=== PATIENT | female | born 1970 | race Caucasian/White ===

== ENCOUNTER 2016-10-24 05:17 | Emergency (ER) | payer SELFPAY ==
[~2016-10-24] VITALS: Ht 170.2 cm; Wt 81.8 kg
[~2016-10-24 05:17] MED LIST: ACIPHEX20 MG PO; AMBIEN 10MG10 MG PO; AMBIEN 5MG TABLE5 MG PO; AMBIEN5 MG PO; ANUSOL HC CREAM30 GM TP; ATIVAN 1MG T1 MG/TAB PO; AZITHROMYCIN; AZITHROMYCIN250 MG PO; CELEXA 20MG20 MG/TAB PO; CEPHALEXIN500 M1 PO; CHEMO; CITALOPRAM HYDR20 MG PO; CLINDAMYCIN150 MG PO; FLEXERIL 1010 MG/TAB PO; IBU800 M1 PO; MACROBID 1100 MG/CAP PO; MEPERIDINE HCL50 MG PO; MOTRIN 600600 MG/TAB PO; MOTRIN 800800 MG/TAB PO; MVI; NEXIUM40 MG PO; NO HOME MEDICATIONS; NORCO 325 MG-51 TAB PO; NORCO 325 MG-7.1 TAB PO; PEPCID 20MG TAB20 MG PO; PERCOCET 325 MG1 TA2 PO; PHENERGAN 25 TA25 MG PO; PHENERGAN W/CO120 ML PO; PHENERGAN25 MG RC; SEPTRA DS 8001 TAB PO; SEROQUEL 1100 MG/TAB PO; SEROQUEL100 MG PO; TETRACYCLINE 250MG PO; VICODIN 5/5001 UDTAB PO; VITAMIN C500 MG PO; VITAMIN E-400200 IU PO; XANAX0.5 MG PO; ZITHROMAX Z PA250 MG PO; ZITHROMAX1 GM/PACKE PO; ZOFRAN 4MG T4 MG/TAB PO; ZOFRAN ODT4 MG PO; ZOFRAN ODT8 MG PO
[2016-10-24 05:18] VITALS: TEMP 98.6
[2016-10-24 05:57] LABS: BASO # 0.1 (0.0-0.2); BASO % 1.4 % (0.0-2.0); EOS % 0.5 % (0-4.0); GRAN # 1.6 (1.4-6.5); GRAN % 37.2 % (42.2-75.2); HEMATOCRIT 42.7 % (37.0-47.0); HEMOGLOBIN 14.3 g/dl (12.5-16.0); LYMPH # 2.3 (1.2-3.4); LYMPH % 52.2 % (20.0-51.0); MEAN CELL VOLUME 88 fl (80.0-100.0); MEAN CORPUSCULAR HEMOGLOBIN 29 pg (27.0-31.0); MEAN CORPUSCULAR HGB CONC 34 g/dl (33.0-37.0); MEAN PLATELET VOLUME 9.2 fl (7.4-10.4); MONO # 0.4 (0.1-0.6); MONO % 8.7 % (1.7-9.3); PLATELET COUNT 101 K/mm3 (130-400); RED BLOOD COUNT 4.86 M/mm3 (4.10-5.30); REDCELL DISTRIBUTION WIDTH-CV 14.6 % (11.5-14.5); WHITE BLOOD COUNT 4.4 K/mm3 (4.8-10.8)
[2016-10-24 06:07] LABS: ADJUSTED CALCIUM 8.7 mg/dL (8.4-10.2); ALANINE AMINOTRANSFERASE 42 U/L (9-52); ALBUMIN 4.1 gm/dL (3.5-5.0); ALKALINE PHOSPHATASE 85 U/L (50-136); ANION GAP 16 mmol/L (7-16); BILIRUBIN,TOTAL 0.8 mg/dL (0.0-1.0); BLOOD UREA NITROGEN 9 mg/dL (7-17); CALCIUM 8.8 mg/dL (8.4-10.2); CARBON DIOXIDE 22 mmol/L (22-30); CHLORIDE 105 mmol/L (98-107); CREATININE, serum 0.92 mg/dL (0.52-1.25); GLUCOSE 84 mg/dL (74-106); POTASSIUM 3.9 mmol/L (3.4-5.0); SODIUM 143 mmol/L (137-145); TOTAL PROTEIN 7.3 gm/dL (6.4-8.2)
[2016-10-24 06:08] LABS: ACETAMINOPHEN < 10 ug/mL (10-30); SALICYLATE < 1.0 mg/dL
[2016-10-24 15:38] LABS: AMPHETAMINE URINE NEGATIVE; BARBITURATES URINE NEGATIVE; BENZODIAZEPINES URINE NEGATIVE; BUPRENORPHINE URINE NEGATIVE; METHADONE URINE NEGATIVE; OPIATES URINE NEGATIVE; OXYCODONE URINE NEGATIVE; PHENCYCLIDINE URINE NEGATIVE; PROPOXYPHENE URINE NEGATIVE; THC CANNABINOIDS URINE NEGATIVE
[2016-10-24] MEDS ORDERED: VALIUM 2MG T2 MG/TAB PO (19:13)
[2016-10-24 20:15] VITALS: BP 149/101; PULSE 102
== END 2016-10-24 20:39 | disposition home or self-care (01) ==
LOC: COL.ER 05:17
PROVIDERS: Emergency Medicine
DX: T45.0X2A Poisoning by antiallergic and antiemetic drugs, intentional self-harm, initial encounter (principal); F32.9 Major depressive disorder, single episode, unspecified; F43.10 Post-traumatic stress disorder, unspecified; F10.230 Alcohol dependence with withdrawal, uncomplicated; F10.220 Alcohol dependence with intoxication, uncomplicated; T51.0X2A Toxic effect of ethanol, intentional self-harm, initial encounter; Y90.8 Blood alcohol level of 240 mg/100 ml or more; R45.851 Suicidal ideations
CPT/HCPCS: J2060; J2405; J2765; J3360; J7030

== ENCOUNTER 2016-10-27 10:52 | Emergency (ER) | payer SELFPAY ==
[~2016-10-27] VITALS: Ht 170.2 cm; Wt 76.4 kg
[~2016-10-27 10:52] MED LIST changes: +VALIUM 2MG T2 MG/TAB PO
[2016-10-27 10:53] VITALS: BP 125/92; PULSE 135; TEMP 98.2
== END 2016-10-27 11:50 | disposition left against medical advice (07) ==
LOC: COL.ER 10:52
DX: R45.851 Suicidal ideations (principal)

== ENCOUNTER 2016-10-27 12:16 | Emergency (ER) | payer SELFPAY ==
[~2016-10-27] VITALS: Ht 170.2 cm; Wt 76.4 kg
[2016-10-27 13:37] LABS: BASO % 0.7 % (0.0-2.0); EOS # 0.1 (0.0-0.7); EOS % 2.5 % (0-4.0); GRAN # 2.3 (1.4-6.5); GRAN % 51.4 % (42.2-75.2); HEMATOCRIT 44.1 % (37.0-47.0); HEMOGLOBIN 14.3 g/dl (12.5-16.0); LYMPH # 1.6 (1.2-3.4); LYMPH % 36.6 % (20.0-51.0); MEAN CELL VOLUME 91 fl (80.0-100.0); MEAN CORPUSCULAR HEMOGLOBIN 29 pg (27.0-31.0); MEAN CORPUSCULAR HGB CONC 32 g/dl (33.0-37.0); MEAN PLATELET VOLUME 11.2 fl (7.4-10.4); MONO # 0.4 (0.1-0.6); MONO % 8.6 % (1.7-9.3); PLATELET COUNT 80 K/mm3 (130-400); RED BLOOD COUNT 4.87 M/mm3 (4.10-5.30); REDCELL DISTRIBUTION WIDTH-CV 14.4 % (11.5-14.5); WHITE BLOOD COUNT 4.4 K/mm3 (4.8-10.8)
[2016-10-27 13:47] LABS: ANION GAP 15 mmol/L (7-16); BLOOD UREA NITROGEN 8 mg/dL (7-17); CALCIUM 9.3 mg/dL (8.4-10.2); CARBON DIOXIDE 22 mmol/L (22-30); CHLORIDE 106 mmol/L (98-107); CREATININE, serum 0.97 mg/dL (0.52-1.25); GLUCOSE 81 mg/dL (74-106); POTASSIUM 3.7 mmol/L (3.4-5.0); SODIUM 143 mmol/L (137-145)
[2016-10-27 13:48] LABS: ACETAMINOPHEN < 10 ug/mL (10-30); SALICYLATE < 1.0 mg/dL
[2016-10-27 20:32] LABS: AMPHETAMINE URINE NEGATIVE; BARBITURATES URINE NEGATIVE; BENZODIAZEPINES URINE NEGATIVE; BUPRENORPHINE URINE NEGATIVE; METHADONE URINE NEGATIVE; OPIATES URINE NEGATIVE; OXYCODONE URINE NEGATIVE; PHENCYCLIDINE URINE NEGATIVE; PROPOXYPHENE URINE NEGATIVE; THC CANNABINOIDS URINE NEGATIVE
[2016-10-28 16:47] VITALS: BP 119/98; PULSE 66; TEMP 98.6
== END 2016-10-28 16:52 ==
LOC: COL.ER 12:16
PROVIDERS: Nurse Practitioner
DX: F32.9 Major depressive disorder, single episode, unspecified (principal); R45.851 Suicidal ideations; F10.129 Alcohol abuse with intoxication, unspecified; Y90.6 Blood alcohol level of 120-199 mg/100 ml
CPT/HCPCS: J2270

== ENCOUNTER 2017-02-01 21:29 | Emergency (ER) | payer SELFPAY ==
[~2017-02-01] VITALS: Ht 170.2 cm; Wt 96.4 kg
[2017-02-01 21:32] VITALS: TEMP 98.2
[2017-02-01] MEDS ORDERED: KLONOPIN2 MG PO (21:37)
[2017-02-01] MEDS ORDERED: ZOLOFT 100MG100 MG PO (21:38)
[2017-02-01 22:27] LABS: AMPHETAMINE URINE NEGATIVE; BARBITURATES URINE NEGATIVE; BENZODIAZEPINES URINE NEGATIVE; BUPRENORPHINE URINE NEGATIVE; METHADONE URINE NEGATIVE; OPIATES URINE NEGATIVE; OXYCODONE URINE NEGATIVE; PHENCYCLIDINE URINE NEGATIVE; PROPOXYPHENE URINE NEGATIVE; THC CANNABINOIDS URINE NEGATIVE
[2017-02-01 22:58] LABS: BASO % 0.7 % (0.0-2.0); EOS % 0.4 % (0-4.0); GRAN # 2.9 (1.4-6.5); GRAN % 64.1 % (42.2-75.2); HEMATOCRIT 44.7 % (37.0-47.0); HEMOGLOBIN 14.9 g/dl (12.5-16.0); LYMPH # 1.3 (1.2-3.4); LYMPH % 28.8 % (20.0-51.0); MEAN CELL VOLUME 85 fl (80.0-100.0); MEAN CORPUSCULAR HEMOGLOBIN 28 pg (27.0-31.0); MEAN CORPUSCULAR HGB CONC 33 g/dl (33.0-37.0); MEAN PLATELET VOLUME 9.8 fl (7.4-10.4); MONO # 0.3 (0.1-0.6); MONO % 5.8 % (1.7-9.3); PLATELET COUNT 144 K/mm3 (130-400); RED BLOOD COUNT 5.24 M/mm3 (4.10-5.30); REDCELL DISTRIBUTION WIDTH-CV 15.5 % (11.5-14.5); WHITE BLOOD COUNT 4.5 K/mm3 (4.8-10.8)
[2017-02-01 23:06] LABS: ADJUSTED CALCIUM 8.4 mg/dL (8.4-10.2); ALANINE AMINOTRANSFERASE 22 U/L (9-52); ALBUMIN 4.6 gm/dL (3.5-5.0); ALKALINE PHOSPHATASE 105 U/L (50-136); ANION GAP 18 mmol/L (7-16); BILIRUBIN,TOTAL 0.8 mg/dL (0.0-1.0); BLOOD UREA NITROGEN 14 mg/dL (7-17); CALCIUM 8.9 mg/dL (8.4-10.2); CARBON DIOXIDE 24 mmol/L (22-30); CHLORIDE 109 mmol/L (98-107); CREATININE, serum 0.83 mg/dL (0.52-1.25); GLUCOSE 89 mg/dL (74-106); POTASSIUM 3.9 mmol/L (3.4-5.0); SODIUM 151 mmol/L (137-145); TOTAL PROTEIN 8.1 gm/dL (6.4-8.2)
[2017-02-01 23:08] LABS: ACETAMINOPHEN < 10 ug/mL (10-30); SALICYLATE < 1.0 mg/dL
[2017-02-02 12:58] VITALS: BP 144/95; PULSE 78
== END 2017-02-02 13:05 | disposition home or self-care (01) ==
LOC: COL.ER 21:29
PROVIDERS: Emergency Medicine
DX: T42.4X2A Poisoning by benzodiazepines, intentional self-harm, initial encounter (principal); R45.851 Suicidal ideations; Y92.009 Unspecified place in unspecified non-institutional (private) residence as the place of occurrence of the external cause; R11.2 Nausea with vomiting, unspecified; F10.120 Alcohol abuse with intoxication, uncomplicated; Y90.6 Blood alcohol level of 120-199 mg/100 ml; F32.9 Major depressive disorder, single episode, unspecified

== ENCOUNTER 2017-02-06 17:28 | Emergency (ER) | payer SELFPAY ==
[~2017-02-06] VITALS: Ht 170.2 cm; Wt 90.9 kg
[~2017-02-06 17:28] MED LIST changes: +KLONOPIN2 MG PO; +ZOLOFT 100MG100 MG PO
[2017-02-06 17:29] VITALS: TEMP 98.4
[2017-02-06] MEDS ORDERED: AMBIEN 10MG10 MG PO (17:42)
[2017-02-06] MEDS ORDERED: KLONOPIN 0.5MG0.5 MG PO (17:43)
[2017-02-06 18:20] LABS: BASO % 0.5 % (0.0-2.0); EOS # 0.1 (0.0-0.7); EOS % 0.8 % (0-4.0); GRAN # 3.7 (1.4-6.5); GRAN % 62.4 % (42.2-75.2); HEMATOCRIT 39.3 % (37.0-47.0); HEMOGLOBIN 12.8 g/dl (12.5-16.0); LYMPH # 1.8 (1.2-3.4); LYMPH % 30.7 % (20.0-51.0); MEAN CELL VOLUME 88 fl (80.0-100.0); MEAN CORPUSCULAR HEMOGLOBIN 29 pg (27.0-31.0); MEAN CORPUSCULAR HGB CONC 33 g/dl (33.0-37.0); MEAN PLATELET VOLUME 9.8 fl (7.4-10.4); MONO # 0.3 (0.1-0.6); MONO % 5.4 % (1.7-9.3); PLATELET COUNT 163 K/mm3 (130-400); RED BLOOD COUNT 4.47 M/mm3 (4.10-5.30); REDCELL DISTRIBUTION WIDTH-CV 15.7 % (11.5-14.5)
[2017-02-06 18:21] LABS: AMPHETAMINE URINE NEGATIVE; BARBITURATES URINE NEGATIVE; BENZODIAZEPINES URINE NEGATIVE; METHADONE URINE NEGATIVE; OPIATES URINE NEGATIVE; OXYCODONE URINE NEGATIVE; PHENCYCLIDINE URINE NEGATIVE; PROPOXYPHENE URINE NEGATIVE; THC CANNABINOIDS URINE NEGATIVE
[2017-02-06 18:30] LABS: ANION GAP 15 mmol/L (7-16); BLOOD UREA NITROGEN 10 mg/dL (7-17); CALCIUM 8.5 mg/dL (8.4-10.2); CARBON DIOXIDE 24 mmol/L (22-30); CHLORIDE 110 mmol/L (98-107); CREATININE, serum 0.84 mg/dL (0.52-1.25); GLUCOSE 84 mg/dL (74-106); POTASSIUM 3.7 mmol/L (3.4-5.0); SODIUM 149 mmol/L (137-145)
[2017-02-06 18:32] LABS: ACETAMINOPHEN < 10 ug/mL (10-30); SALICYLATE < 1.0 mg/dL
[2017-02-07 06:23] VITALS: BP 136/91
[2017-02-07 11:37] VITALS: PULSE 93
== END 2017-02-07 11:37 | disposition home or self-care (01) ==
LOC: COL.ER 17:28
PROVIDERS: Physician Assistant
DX: F10.120 Alcohol abuse with intoxication, uncomplicated (principal); F43.10 Post-traumatic stress disorder, unspecified; F32.9 Major depressive disorder, single episode, unspecified; Y90.8 Blood alcohol level of 240 mg/100 ml or more; R45.851 Suicidal ideations
CPT/HCPCS: J2765

== ENCOUNTER 2017-02-15 13:13 | Emergency (ER) | payer SELFPAY ==
[~2017-02-15] VITALS: Ht 170.2 cm; Wt 75.5 kg
[~2017-02-15 13:13] MED LIST changes: +KLONOPIN 0.5MG0.5 MG PO
[2017-02-15 13:15] VITALS: TEMP 98.4
[2017-02-15 14:20] LABS: BASO # 0.1 (0.0-0.2); BASO % 1.2 % (0.0-2.0); EOS # 0.1 (0.0-0.7); EOS % 0.8 % (0-4.0); GRAN # 3.3 (1.4-6.5); GRAN % 54.6 % (42.2-75.2); HEMATOCRIT 41.3 % (37.0-47.0); HEMOGLOBIN 13.5 g/dl (12.5-16.0); LYMPH # 2.3 (1.2-3.4); LYMPH % 38.2 % (20.0-51.0); MEAN CELL VOLUME 87 fl (80.0-100.0); MEAN CORPUSCULAR HEMOGLOBIN 29 pg (27.0-31.0); MEAN CORPUSCULAR HGB CONC 33 g/dl (33.0-37.0); MONO # 0.3 (0.1-0.6); MONO % 4.9 % (1.7-9.3); PLATELET COUNT 300 K/mm3 (130-400); RED BLOOD COUNT 4.74 M/mm3 (4.10-5.30); REDCELL DISTRIBUTION WIDTH-CV 16.1 % (11.5-14.5); WHITE BLOOD COUNT 6.1 K/mm3 (4.8-10.8)
[2017-02-15 14:39] LABS: ADJUSTED CALCIUM 8.6 mg/dL (8.4-10.2); ALANINE AMINOTRANSFERASE 24 U/L (9-52); ALBUMIN 4.4 gm/dL (3.5-5.0); ALKALINE PHOSPHATASE 82 U/L (50-136); ANION GAP 18 mmol/L (7-16); BILIRUBIN,TOTAL 0.6 mg/dL (0.0-1.0); BLOOD UREA NITROGEN 13 mg/dL (7-17); CALCIUM 8.9 mg/dL (8.4-10.2); CARBON DIOXIDE 24 mmol/L (22-30); CHLORIDE 100 mmol/L (98-107); CREATININE, serum 0.89 mg/dL (0.52-1.25); GLUCOSE 85 mg/dL (74-106); POTASSIUM 3.7 mmol/L (3.4-5.0); SODIUM 142 mmol/L (137-145); TOTAL PROTEIN 7.5 gm/dL (6.4-8.2)
[2017-02-15 14:40] LABS: ACETAMINOPHEN < 10 ug/mL (10-30); SALICYLATE < 1.0 mg/dL
[2017-02-15 14:43] LABS: AMPHETAMINE URINE NEGATIVE; BARBITURATES URINE NEGATIVE; BENZODIAZEPINES URINE NEGATIVE; BUPRENORPHINE URINE NEGATIVE; METHADONE URINE NEGATIVE; OPIATES URINE NEGATIVE; OXYCODONE URINE NEGATIVE; PHENCYCLIDINE URINE NEGATIVE; PROPOXYPHENE URINE NEGATIVE
[2017-02-15 14:44] LABS: THC CANNABINOIDS URINE NEGATIVE
[2017-02-15 18:10] VITALS: BP 117/83
[2017-02-15 23:09] VITALS: PULSE 95
== END 2017-02-15 23:09 | disposition home or self-care (01) ==
LOC: COL.ER 13:13
PROVIDERS: Nurse Practitioner
DX: F10.120 Alcohol abuse with intoxication, uncomplicated (principal); Y90.8 Blood alcohol level of 240 mg/100 ml or more; F32.2 Major depressive disorder, single episode, severe without psychotic features; F41.9 Anxiety disorder, unspecified; R51 Headache; R45.851 Suicidal ideations; R56.9 Unspecified convulsions

== ENCOUNTER 2017-03-19 03:35 | Observation (INO) | payer SELFPAY ==
[~2017-03-19] VITALS: Ht 170.2 cm; Wt 76.6 kg
[2017-03-19] VITALS (371 sets, daily range): BP systolic 106–138; BP diastolic 79–101; PULSE 73–94; TEMP 97.3; O2SAT 88–100
[2017-03-19 04:10] LABS: BASO % 0.7 % (0.0-2.0); EOS # 0.1 (0.0-0.7); EOS % 2.5 % (0-4.0); GRAN # 2.4 (1.4-6.5); GRAN % 42.5 % (42.2-75.2); HEMATOCRIT 41.8 % (37.0-47.0); HEMOGLOBIN 13.6 g/dl (12.5-16.0); LYMPH # 2.4 (1.2-3.4); LYMPH % 43.3 % (20.0-51.0); MEAN CELL VOLUME 88 fl (80.0-100.0); MEAN CORPUSCULAR HEMOGLOBIN 29 pg (27.0-31.0); MEAN CORPUSCULAR HGB CONC 33 g/dl (33.0-37.0); MEAN PLATELET VOLUME 10.9 fl (7.4-10.4); MONO # 0.6 (0.1-0.6); MONO % 10.8 % (1.7-9.3); PLATELET COUNT 119 K/mm3 (130-400); RED BLOOD COUNT 4.73 M/mm3 (4.10-5.30); REDCELL DISTRIBUTION WIDTH-CV 14.6 % (11.5-14.5); WHITE BLOOD COUNT 5.6 K/mm3 (4.8-10.8)
[2017-03-19 04:21] LABS: AMPHETAMINE URINE NEGATIVE; BARBITURATES URINE NEGATIVE; BENZODIAZEPINES URINE NEGATIVE; BUPRENORPHINE URINE NEGATIVE; METHADONE URINE NEGATIVE; OPIATES URINE NEGATIVE; OXYCODONE URINE NEGATIVE; PHENCYCLIDINE URINE NEGATIVE; PROPOXYPHENE URINE NEGATIVE; THC CANNABINOIDS URINE NEGATIVE
[2017-03-19 04:24] LABS: ADJUSTED CALCIUM 8.5 mg/dL (8.4-10.2); ALANINE AMINOTRANSFERASE 49 U/L (9-52); ALBUMIN 4.1 gm/dL (3.5-5.0); ALKALINE PHOSPHATASE 83 U/L (50-136); ANION GAP 15 mmol/L (7-16); BILIRUBIN,TOTAL 0.6 mg/dL (0.0-1.0); BLOOD UREA NITROGEN 7 mg/dL (7-17); CALCIUM 8.6 mg/dL (8.4-10.2); CARBON DIOXIDE 20 mmol/L (22-30); CHLORIDE 102 mmol/L (98-107); CREATININE, serum 0.84 mg/dL (0.52-1.25); GLUCOSE 92 mg/dL (74-106); POTASSIUM 3.5 mmol/L (3.4-5.0); SODIUM 137 mmol/L (137-145); TOTAL PROTEIN 7.1 gm/dL (6.4-8.2)
[2017-03-19 04:25] LABS: ACETAMINOPHEN < 10 ug/mL (10-30); SALICYLATE < 1.0 mg/dL
[2017-03-19 05:50] LABS: MAGNESIUM 1.7 mg/dL (1.6-2.3)
[2017-03-19 11:50] LABS: PARTIAL THROMBOPLASTIN TIME 27.2 SECONDS (26.0-37.0)
[2017-03-19 13:06] LABS: PH 6 (5-8); SQUAMOUS EPITHELIAL None Seen /hpf; URINE APPEARANCE Clear; URINE BACTERIA Rare /hpf; URINE BILIRUBIN Negative (NEGATIVE); URINE BLOOD Negative (NEGATIVE); URINE COLOR Yellow; URINE GLUCOSE Negative (NEGATIVE); URINE KETONE Negative (NEGATIVE); URINE RBC None Seen /hpf; URINE UROBILINOGEN Negative (NEGATIVE); URINE WBC 0-2 /hpf
== END 2017-03-19 14:45 | disposition other institution (70) ==
LOC: COL.ER 03:35 → ICU 04:42
PROVIDERS: Emergency Medicine; Nurse Practitioner Family
DX: T54.92XA Toxic effect of unspecified corrosive substance, intentional self-harm, initial encounter (principal); R11.2 Nausea with vomiting, unspecified; F10.229 Alcohol dependence with intoxication, unspecified; F32.9 Major depressive disorder, single episode, unspecified; G43.909 Migraine, unspecified, not intractable, without status migrainosus; K21.9 Gastro-esophageal reflux disease without esophagitis; Z90.3 Acquired absence of stomach [part of]; Z90.710 Acquired absence of both cervix and uterus; Z90.721 Acquired absence of ovaries, unilateral; Z90.49 Acquired absence of other specified parts of digestive tract; Y90.8 Blood alcohol level of 240 mg/100 ml or more; Z85.41 Personal history of malignant neoplasm of cervix uteri; Z92.21 Personal history of antineoplastic chemotherapy; Z85.028 Personal history of other malignant neoplasm of stomach; Z82.49 Family history of ischemic heart disease and other diseases of the circulatory system
CPT/HCPCS: C9113; G0378; J1170; J2060; J2405; J3411; J7030

== ENCOUNTER 2017-03-25 00:30 | Emergency (ER) | payer SELFPAY ==
[~2017-03-25] VITALS: Ht 170.2 cm; Wt 86.4 kg
[2017-03-25 00:34] VITALS: TEMP 97.9
[2017-03-25 01:09] LABS: BASO # 0.1 (0.0-0.2); EOS # 0.1 (0.0-0.7); EOS % 2.6 % (0-4.0); GRAN # 1.4 (1.4-6.5); GRAN % 28.9 % (42.2-75.2); HEMATOCRIT 40.7 % (37.0-47.0); HEMOGLOBIN 13.3 g/dl (12.5-16.0); LYMPH # 2.9 (1.2-3.4); MEAN CELL VOLUME 87 fl (80.0-100.0); MEAN CORPUSCULAR HEMOGLOBIN 28 pg (27.0-31.0); MEAN CORPUSCULAR HGB CONC 33 g/dl (33.0-37.0); MEAN PLATELET VOLUME 9.1 fl (7.4-10.4); MONO # 0.5 (0.1-0.6); MONO % 9.3 % (1.7-9.3); PLATELET COUNT 161 K/mm3 (130-400); RED BLOOD COUNT 4.68 M/mm3 (4.10-5.30); REDCELL DISTRIBUTION WIDTH-CV 15.1 % (11.5-14.5); WHITE BLOOD COUNT 4.9 K/mm3 (4.8-10.8)
[2017-03-25 01:24] LABS: ADJUSTED CALCIUM 8.1 mg/dL (8.4-10.2); ALANINE AMINOTRANSFERASE 48 U/L (9-52); ALBUMIN 4.1 gm/dL (3.5-5.0); ALKALINE PHOSPHATASE 81 U/L (50-136); ANION GAP 15 mmol/L (7-16); BILIRUBIN,TOTAL 0.6 mg/dL (0.0-1.0); BLOOD UREA NITROGEN 5 mg/dL (7-17); CALCIUM 8.2 mg/dL (8.4-10.2); CARBON DIOXIDE 22 mmol/L (22-30); CHLORIDE 110 mmol/L (98-107); CREATININE, serum 0.84 mg/dL (0.52-1.25); GLUCOSE 94 mg/dL (74-106); POTASSIUM 3.5 mmol/L (3.4-5.0); SODIUM 147 mmol/L (137-145); TOTAL PROTEIN 7.1 gm/dL (6.4-8.2)
[2017-03-25 01:29] LABS: ACETAMINOPHEN < 10 ug/mL (10-30); SALICYLATE < 1.0 mg/dL
[2017-03-25 02:38] LABS: PH 7 (5-8); SQUAMOUS EPITHELIAL 0-2 /hpf; URINE APPEARANCE Clear; URINE BACTERIA None Seen /hpf; URINE BILIRUBIN Negative (NEGATIVE); URINE BLOOD Negative (NEGATIVE); URINE COLOR Straw; URINE GLUCOSE Negative (NEGATIVE); URINE KETONE Negative (NEGATIVE); URINE RBC 0-2 /hpf; URINE UROBILINOGEN Negative (NEGATIVE); URINE WBC 0-2 /hpf
[2017-03-25 02:57] LABS: AMPHETAMINE URINE NEGATIVE; BARBITURATES URINE NEGATIVE; BENZODIAZEPINES URINE NEGATIVE; BUPRENORPHINE URINE NEGATIVE; METHADONE URINE NEGATIVE; OPIATES URINE NEGATIVE; OXYCODONE URINE NEGATIVE; PHENCYCLIDINE URINE NEGATIVE; PROPOXYPHENE URINE NEGATIVE; THC CANNABINOIDS URINE NEGATIVE
[2017-03-25 19:19] VITALS: BP 173/109; PULSE 85
== END 2017-03-25 19:19 | disposition home or self-care (01) ==
LOC: COL.ER 00:30
PROVIDERS: Nurse Practitioner
DX: F32.9 Major depressive disorder, single episode, unspecified (principal); R45.851 Suicidal ideations; F10.120 Alcohol abuse with intoxication, uncomplicated; Y90.8 Blood alcohol level of 240 mg/100 ml or more; F60.3 Borderline personality disorder; G40.909 Epilepsy, unspecified, not intractable, without status epilepticus; Z85.41 Personal history of malignant neoplasm of cervix uteri
CPT/HCPCS: J2550; J3411; J3475; J7030

== ENCOUNTER 2017-04-02 15:40 | Emergency (ER) | payer SELFPAY ==
[2017-04-02 16:50] LABS: BASO # 0.1 (0.0-0.2); BASO % 1.6 % (0.0-2.0); EOS # 0.1 (0.0-0.7); EOS % 1.8 % (0-4.0); GRAN # 2.3 (1.4-6.5); GRAN % 53.3 % (42.2-75.2); HEMATOCRIT 41.5 % (37.0-47.0); HEMOGLOBIN 13.8 g/dl (12.5-16.0); LYMPH # 1.6 (1.2-3.4); LYMPH % 35.8 % (20.0-51.0); MEAN CELL VOLUME 87 fl (80.0-100.0); MEAN CORPUSCULAR HEMOGLOBIN 29 pg (27.0-31.0); MEAN CORPUSCULAR HGB CONC 33 g/dl (33.0-37.0); MEAN PLATELET VOLUME 8.9 fl (7.4-10.4); MONO # 0.3 (0.1-0.6); MONO % 7.3 % (1.7-9.3); PLATELET COUNT 226 K/mm3 (130-400); REDCELL DISTRIBUTION WIDTH-CV 14.4 % (11.5-14.5); WHITE BLOOD COUNT 4.4 K/mm3 (4.8-10.8)
[2017-04-02 17:07] LABS: ADJUSTED CALCIUM 8.4 mg/dL (8.4-10.2); ALANINE AMINOTRANSFERASE 26 U/L (9-52); ALBUMIN 4.1 gm/dL (3.5-5.0); ALKALINE PHOSPHATASE 81 U/L (50-136); ANION GAP 17 mmol/L (7-16); BILIRUBIN,TOTAL 0.7 mg/dL (0.0-1.0); BLOOD UREA NITROGEN 7 mg/dL (7-17); CALCIUM 8.5 mg/dL (8.4-10.2); CARBON DIOXIDE 22 mmol/L (22-30); CHLORIDE 108 mmol/L (98-107); CREATININE, serum 0.86 mg/dL (0.52-1.25); GLUCOSE 94 mg/dL (74-106); POTASSIUM 3.6 mmol/L (3.4-5.0); SODIUM 146 mmol/L (137-145); TOTAL PROTEIN 7.2 gm/dL (6.4-8.2)
[2017-04-02 17:08] LABS: ACETAMINOPHEN < 10 ug/mL (10-30); SALICYLATE < 1.0 mg/dL
[2017-04-02 18:38] LABS: AMPHETAMINE URINE NEGATIVE; BARBITURATES URINE NEGATIVE; BENZODIAZEPINES URINE NEGATIVE; BUPRENORPHINE URINE NEGATIVE; METHADONE URINE NEGATIVE; OPIATES URINE NEGATIVE; OXYCODONE URINE NEGATIVE; PHENCYCLIDINE URINE NEGATIVE; PROPOXYPHENE URINE NEGATIVE; THC CANNABINOIDS URINE NEGATIVE
[2017-04-02 19:57] VITALS: TEMP 97.4
[2017-04-03 09:22] VITALS: BP 107/69; PULSE 105
== END 2017-04-03 09:23 | disposition home or self-care (01) ==
LOC: COL.ER 15:40
PROVIDERS: Emergency Medicine
DX: F10.120 Alcohol abuse with intoxication, uncomplicated (principal); Y90.8 Blood alcohol level of 240 mg/100 ml or more; F32.9 Major depressive disorder, single episode, unspecified; F43.10 Post-traumatic stress disorder, unspecified; R45.851 Suicidal ideations

== ENCOUNTER 2017-04-09 14:41 | Emergency (ER) | payer SELFPAY ==
[~2017-04-09] VITALS: Ht 170.2 cm; Wt 81.8 kg
[2017-04-09 14:41] VITALS: PULSE 96; TEMP 97.1
[2017-04-09 17:33] VITALS: BP 107/75
== END 2017-04-09 17:34 | disposition home or self-care (01) ==
LOC: COL.ER 14:41
DX: R45.851 Suicidal ideations (principal); F10.220 Alcohol dependence with intoxication, uncomplicated; F32.9 Major depressive disorder, single episode, unspecified; R11.0 Nausea; Z85.41 Personal history of malignant neoplasm of cervix uteri; Z85.028 Personal history of other malignant neoplasm of stomach; G43.909 Migraine, unspecified, not intractable, without status migrainosus
CPT/HCPCS: J1200; J2405; J7030

== ENCOUNTER 2017-06-05 20:18 | Emergency (ER) | payer SELFPAY ==
[~2017-06-05] VITALS: Ht 170.2 cm; Wt 76.8 kg
[2017-06-05 20:40] LABS: ALLEN TEST YES; ALLENS TEST RESULT PASS; ARTERIAL BLD GAS O2 SATURATION 88.7 % (92-100); ARTERIAL BLD GAS TCO2 CT 24.9; ARTERIAL BLOOD GAS BASE EXCESS -3.7 (-2-2); ARTERIAL BLOOD GAS HCO3 23.4 meq/L (22-26); ARTERIAL BLOOD GAS PHT 7.28 C (7.35-7.45); ARTERIAL BLOOD GAS PO2 67.2 mmHg (80-100); ARTERIAL BLOOD GAS PO2T 67.2 (80-100); ARTERIAL BLOOD GAS pH 7.28 (7.35-7.45); ATS? YES
[2017-06-05 20:42] LABS: BASO # 0.1 (0.0-0.2); BASO % 1.2 % (0.0-2.0); EOS # 0.1 (0.0-0.7); EOS % 0.9 % (0-4.0); GRAN # 3.7 (1.4-6.5); GRAN % 34.6 % (42.2-75.2); HEMATOCRIT 36.5 % (37.0-47.0); HEMOGLOBIN 11.6 g/dl (12.5-16.0); LYMPH # 5.6 (1.2-3.4); LYMPH % 53.4 % (20.0-51.0); MEAN CELL VOLUME 93 fl (80.0-100.0); MEAN CORPUSCULAR HEMOGLOBIN 30 pg (27.0-31.0); MEAN CORPUSCULAR HGB CONC 32 g/dl (33.0-37.0); MEAN PLATELET VOLUME 9.1 fl (7.4-10.4); MONO % 9.6 % (1.7-9.3); PLATELET COUNT 377 K/mm3 (130-400); RED BLOOD COUNT 3.93 M/mm3 (4.10-5.30); REDCELL DISTRIBUTION WIDTH-CV 19.9 % (11.5-14.5); WHITE BLOOD COUNT 10.6 K/mm3 (4.8-10.8)
[2017-06-05 20:48] LABS: CALCIUM 8.3 mg/dL (8.4-10.2); CREATININE, serum 0.74 mg/dL (0.52-1.25); POTASSIUM 3.4 mmol/L (3.4-5.0)
[2017-06-05 22:00] VITALS: BP 153/112; PULSE 127
[2017-06-05 22:09] LABS: ALLEN TEST YES; ALLENS TEST RESULT PASS; ARTERIAL BLD GAS O2 SATURATION 92.9 % (92-100); ARTERIAL BLD GAS TCO2 CT 23.9; ARTERIAL BLOOD GAS BASE EXCESS -2.8 (-2-2); ARTERIAL BLOOD GAS HCO3 22.6 meq/L (22-26); ARTERIAL BLOOD GAS PHT 7.35 C (7.35-7.45); ARTERIAL BLOOD GAS PO2 77.2 mmHg (80-100); ARTERIAL BLOOD GAS PO2T 77.2 (80-100); ARTERIAL BLOOD GAS pH 7.35 (7.35-7.45); ATS? YES
== END 2017-06-05 22:45 | disposition short-term general hospital (02) ==
LOC: COL.ER 20:18
PROVIDERS: Emergency Medicine
DX: J18.9 Pneumonia, unspecified organism (principal); F32.9 Major depressive disorder, single episode, unspecified; Z90.710 Acquired absence of both cervix and uterus; Z90.89 Acquired absence of other organs; Z85.41 Personal history of malignant neoplasm of cervix uteri
CPT/HCPCS: J0330; J2250; J2704; J7030

== ENCOUNTER 2017-10-01 00:30 | Emergency (ER) | payer SELFPAY ==
[~2017-10-01] VITALS: Ht 167.6 cm; Wt 64.5 kg
[2017-10-01 00:36] VITALS: TEMP 98.4
[2017-10-01 01:31] LABS: BASO # 0.1 (0.0-0.2); BASO % 1.7 % (0.0-2.0); EOS # 0.1 (0.0-0.7); EOS % 2.1 % (0-4.0); GRAN # 1.6 (1.4-6.5); GRAN % 35.2 % (42.2-75.2); HEMATOCRIT 39.8 % (37.0-47.0); HEMOGLOBIN 12.7 g/dl (12.5-16.0); LYMPH # 2.4 (1.2-3.4); LYMPH % 51.1 % (20.0-51.0); MEAN CELL VOLUME 97 fl (80.0-100.0); MEAN CORPUSCULAR HEMOGLOBIN 31 pg (27.0-31.0); MEAN CORPUSCULAR HGB CONC 32 g/dl (33.0-37.0); MEAN PLATELET VOLUME 9.6 fl (7.4-10.4); MONO # 0.5 (0.1-0.6); MONO % 9.7 % (1.7-9.3); PLATELET COUNT 168 K/mm3 (130-400); RED BLOOD COUNT 4.11 M/mm3 (4.10-5.30); WHITE BLOOD COUNT 4.7 K/mm3 (4.8-10.8)
[2017-10-01 01:38] LABS: ACETAMINOPHEN < 10 ug/mL (10-30); ADJUSTED CALCIUM 9.2 mg/dL (8.4-10.2); ALANINE AMINOTRANSFERASE 28 U/L (9-52); ALBUMIN 3.4 gm/dL (3.5-5.0); ALKALINE PHOSPHATASE 66 U/L (50-136); ANION GAP 10 mmol/L (7-16); BILIRUBIN,TOTAL 0.4 mg/dL (0.0-1.0); BLOOD UREA NITROGEN 3 mg/dL (7-17); CALCIUM 8.7 mg/dL (8.4-10.2); CARBON DIOXIDE 25 mmol/L (22-30); CHLORIDE 112 mmol/L (98-107); CREATININE, serum 0.75 mg/dL (0.52-1.25); GLUCOSE 97 mg/dL (74-106); POTASSIUM 3.8 mmol/L (3.4-5.0); SALICYLATE < 1.0 mg/dL; SODIUM 147 mmol/L (137-145); TOTAL PROTEIN 6.1 gm/dL (6.4-8.2)
[2017-10-01 01:46] LABS: ALCOHOL(ethanol),MEDICAL 315 mg/dL
[2017-10-01 02:04] LABS: AMPHETAMINE URINE NEGATIVE; BARBITURATES URINE NEGATIVE; BENZODIAZEPINES URINE POSITIVE; BUPRENORPHINE URINE NEGATIVE; METHADONE URINE NEGATIVE; OPIATES URINE NEGATIVE; OXYCODONE URINE NEGATIVE; PHENCYCLIDINE URINE NEGATIVE; PROPOXYPHENE URINE NEGATIVE; THC CANNABINOIDS URINE NEGATIVE; TRICYCLIC ANTIDEPRESS URINE NEGATIVE
[2017-10-01 11:02] VITALS: BP 122/81; PULSE 110
== END 2017-10-01 10:50 | disposition home or self-care (01) ==
LOC: COL.ER 00:30
PROVIDERS: Emergency Medicine
DX: F32.9 Major depressive disorder, single episode, unspecified (principal); R45.851 Suicidal ideations; F10.129 Alcohol abuse with intoxication, unspecified; Y90.8 Blood alcohol level of 240 mg/100 ml or more

== ENCOUNTER 2017-10-10 19:56 | Emergency (ER) | payer SELFPAY ==
[~2017-10-10] VITALS: Ht 167.6 cm; Wt 75.5 kg
[2017-10-10 19:57] VITALS: BP 128/91; PULSE 119; TEMP 98.4
[2017-10-10 20:33] LABS: COLLECTION METHOD CLEAN CATCH
[2017-10-10 20:38] LABS: PH 6 (5-8); SQUAMOUS EPITHELIAL 0-2 /hpf; URINE APPEARANCE Clear; URINE BACTERIA Rare /hpf; URINE BILIRUBIN Negative (NEGATIVE); URINE BLOOD Negative (NEGATIVE); URINE COLOR Straw; URINE GLUCOSE Negative (NEGATIVE); URINE KETONE Negative (NEGATIVE); URINE LEUKOCYTE ESTERASE Negative (NEGATIVE); URINE PROTEIN(semi-quant) Negative (NEGATIVE); URINE RBC None Seen /hpf; URINE UROBILINOGEN Negative (NEGATIVE); URINE WBC 0-2 /hpf
[2017-10-10 20:50] LABS: AMPHETAMINE URINE NEGATIVE; BARBITURATES URINE NEGATIVE; BENZODIAZEPINES URINE NEGATIVE; BUPRENORPHINE URINE NEGATIVE; METHADONE URINE NEGATIVE; OPIATES URINE NEGATIVE; OXYCODONE URINE NEGATIVE; PHENCYCLIDINE URINE NEGATIVE; PROPOXYPHENE URINE NEGATIVE; THC CANNABINOIDS URINE NEGATIVE; TRICYCLIC ANTIDEPRESS URINE NEGATIVE
[2017-10-10 23:16] LABS: ACETAMINOPHEN < 10 ug/mL (10-30); SALICYLATE < 1.0 mg/dL
== END 2017-10-10 23:06 | disposition left against medical advice (07) ==
LOC: COL.ER 19:56
PROVIDERS: Emergency Medicine
DX: F32.9 Major depressive disorder, single episode, unspecified (principal); F10.129 Alcohol abuse with intoxication, unspecified; Z90.710 Acquired absence of both cervix and uterus; Z90.89 Acquired absence of other organs

== ENCOUNTER 2017-10-24 16:28 | Emergency (ER) | payer SELFPAY ==
[2017-10-24 16:30] VITALS: TEMP 97.9
[2017-10-24] MEDS ORDERED: ZOLOFT 50MG50 MG PO (16:47)
[2017-10-24 17:43] LABS: BASO # 0.1 (0.0-0.2); BASO % 1.5 % (0.0-2.0); EOS % 0.8 % (0-4.0); GRAN # 1.4 (1.4-6.5); GRAN % 35.4 % (42.2-75.2); HEMOGLOBIN 14.7 g/dl (12.5-16.0); LYMPH % 51.8 % (20.0-51.0); MEAN CELL VOLUME 97 fl (80.0-100.0); MEAN CORPUSCULAR HEMOGLOBIN 31 pg (27.0-31.0); MEAN CORPUSCULAR HGB CONC 32 g/dl (33.0-37.0); MEAN PLATELET VOLUME 9.5 fl (7.4-10.4); MONO # 0.4 (0.1-0.6); MONO % 10.2 % (1.7-9.3); PLATELET COUNT 266 K/mm3 (130-400); RED BLOOD COUNT 4.76 M/mm3 (4.10-5.30); REDCELL DISTRIBUTION WIDTH-CV 15.5 % (11.5-14.5)
[2017-10-24 18:05] LABS: ACETAMINOPHEN < 10 ug/mL (10-30); ALANINE AMINOTRANSFERASE 35 U/L (9-52); ALBUMIN 4.1 gm/dL (3.5-5.0); ALKALINE PHOSPHATASE 63 U/L (50-136); ANION GAP 12 mmol/L (7-16); AST,SGOT 35 U/L (15-37); BILIRUBIN,TOTAL 0.4 mg/dL (0.0-1.0); BLOOD UREA NITROGEN 5 mg/dL (7-17); CALCIUM 9.1 mg/dL (8.4-10.2); CARBON DIOXIDE 24 mmol/L (22-30); CHLORIDE 109 mmol/L (98-107); GLUCOSE 102 mg/dL (74-106); POTASSIUM 4.2 mmol/L (3.4-5.0); SALICYLATE < 1.0 mg/dL; SODIUM 144 mmol/L (137-145); TOTAL PROTEIN 6.8 gm/dL (6.4-8.2)
[2017-10-24 18:15] LABS: ALCOHOL(ethanol),MEDICAL 339 mg/dL
[2017-10-24 18:16] LABS: TRICYCLIC ANTIDEPRESS URINE NEGATIVE
[2017-10-25 06:40] VITALS: BP 158/121; PULSE 99
== END 2017-10-25 06:49 | disposition home or self-care (01) ==
LOC: COL.ER 16:28
PROVIDERS: Family Medicine
DX: F32.9 Major depressive disorder, single episode, unspecified (principal); Z87.891 Personal history of nicotine dependence
CPT/HCPCS: J0780; J2060

== ENCOUNTER 2017-11-18 15:16 | Emergency (ER) | payer SELFPAY ==
[~2017-11-18] VITALS: Ht 170.2 cm; Wt 72.7 kg
[2017-11-18 15:21] VITALS: TEMP 98.7
[2017-11-18 16:49] LABS: BASO # 0.1 (0.0-0.2); EOS # 0.2 (0.0-0.7); EOS % 2.4 % (0-4.0); GRAN # 3.2 (1.4-6.5); GRAN % 46.6 % (42.2-75.2); HEMOGLOBIN 16.9 g/dl (12.5-16.0); LYMPH # 2.8 (1.2-3.4); LYMPH % 41.5 % (20.0-51.0); MEAN CELL VOLUME 91 fl (80.0-100.0); MEAN CORPUSCULAR HEMOGLOBIN 30 pg (27.0-31.0); MEAN CORPUSCULAR HGB CONC 33 g/dl (33.0-37.0); MEAN PLATELET VOLUME 9.6 fl (7.4-10.4); MONO # 0.6 (0.1-0.6); MONO % 8.2 % (1.7-9.3); PLATELET COUNT 307 K/mm3 (130-400)
[2017-11-18 16:57] LABS: COLLECTION METHOD CLEAN CATCH
[2017-11-18 17:04] LABS: MUCOUS Present /lpf; PH 5 (5-8); URINE APPEARANCE Cloudy; URINE BACTERIA Rare /hpf; URINE BILIRUBIN Negative (NEGATIVE); URINE BLOOD Negative (NEGATIVE); URINE COLOR Yellow; URINE GLUCOSE Negative (NEGATIVE); URINE KETONE Negative (NEGATIVE); URINE LEUKOCYTE ESTERASE Trace (NEGATIVE); URINE NITRATE Positive (NEGATIVE); URINE PROTEIN(semi-quant) Negative (NEGATIVE); URINE RBC 0-2 /hpf; URINE UROBILINOGEN Negative (NEGATIVE)
[2017-11-18 17:09] LABS: TRICYCLIC ANTIDEPRESS URINE NEGATIVE
[2017-11-18 17:10] LABS: ALANINE AMINOTRANSFERASE 31 U/L (9-52); ALBUMIN 4.4 gm/dL (3.5-5.0); ALCOHOL(ethanol),MEDICAL 189 mg/dL; ALKALINE PHOSPHATASE 85 U/L (50-136); ANION GAP 15 mmol/L (7-16); AST,SGOT 33 U/L (15-37); BILIRUBIN,TOTAL 0.4 mg/dL (0.0-1.0); BLOOD UREA NITROGEN 11 mg/dL (7-17); CARBON DIOXIDE 22 mmol/L (22-30); CHLORIDE 104 mmol/L (98-107); CREATININE, serum 0.92 mg/dL (0.52-1.25); GLUCOSE 99 mg/dL (74-106); POTASSIUM 3.6 mmol/L (3.4-5.0); SODIUM 140 mmol/L (137-145); TOTAL PROTEIN 7.3 gm/dL (6.4-8.2)
[2017-11-18 17:19] LABS: ACETAMINOPHEN < 10 ug/mL (10-30); SALICYLATE < 1.0 mg/dL
[2017-11-18 17:36] LABS: MAGNESIUM 1.4 mg/dL (1.6-2.3); PHOSPHOROUS 3.1 mg/dL (2.5-4.5)
[2017-11-19 00:29] VITALS: BP 123/82; PULSE 102
== END 2017-11-19 00:50 ==
LOC: COL.ER 15:16
PROVIDERS: Emergency Medicine
DX: F32.9 Major depressive disorder, single episode, unspecified (principal); R45.851 Suicidal ideations; F10.129 Alcohol abuse with intoxication, unspecified; Y90.6 Blood alcohol level of 120-199 mg/100 ml
CPT/HCPCS: J3411; J3475; J7030

== ENCOUNTER 2017-12-16 09:25 | Emergency (ER) | payer SELFPAY ==
[2017-12-16 09:25] VITALS: BP 124/74; PULSE 92; TEMP 97.5
[2017-12-16 10:29] LABS: COLLECTION METHOD CLEAN CATCH
[2017-12-16 10:37] LABS: PH 6 (5-8); URINE APPEARANCE Clear; URINE BACTERIA Rare /hpf; URINE BILIRUBIN Negative (NEGATIVE); URINE BLOOD Negative (NEGATIVE); URINE COLOR Yellow; URINE GLUCOSE Negative (NEGATIVE); URINE KETONE Negative (NEGATIVE); URINE LEUKOCYTE ESTERASE Negative (NEGATIVE); URINE NITRATE Positive (NEGATIVE); URINE PROTEIN(semi-quant) Negative (NEGATIVE); URINE RBC None Seen /hpf; URINE UROBILINOGEN Negative (NEGATIVE)
[2017-12-16] MEDS ORDERED: PERCOCET 325 MG1 TA2 PO (10:58)
[2017-12-16] MEDS ORDERED: FLEXERIL 1010 MG/TAB PO (10:58)
== END 2017-12-16 13:13 | disposition home or self-care (01) ==
LOC: COL.ER 09:25
PROVIDERS: Emergency Medicine
DX: S16.1XXA Strain of muscle, fascia and tendon at neck level, initial encounter (principal); S39.012A Strain of muscle, fascia and tendon of lower back, initial encounter; R40.2412 Glasgow coma scale score 13-15, at arrival to emergency department; Z90.710 Acquired absence of both cervix and uterus; Z90.49 Acquired absence of other specified parts of digestive tract; V18.4XXA Pedal cycle driver injured in noncollision transport accident in traffic accident, initial encounter; Y93.55 Activity, bike riding; Y92.410 Unspecified street and highway as the place of occurrence of the external cause
CPT/HCPCS: J1170

== ENCOUNTER 2018-02-05 16:52 | Inpatient (IN) | payer OTHER ==
[~2018-02-05] VITALS: Ht 172.7 cm; Wt 75.0 kg
[2018-02-05] VITALS (153 sets, daily range): BP systolic 141; BP diastolic 90; PULSE 119; TEMP 97.8; O2SAT 75–100
[2018-02-05 18:05] LABS: BASO # 0.1 (0.0-0.2); BASO % 0.6 % (0.0-2.0); EOS # 0.1 (0.0-0.7); EOS % 1.4 % (0-4.0); GRAN # 5.4 (1.4-6.5); GRAN % 69.3 % (42.2-75.2); HEMOGLOBIN 12.9 g/dl (12.5-16.0); LYMPH # 1.6 (1.2-3.4); LYMPH % 20.5 % (20.0-51.0); MEAN CELL VOLUME 86 fl (80.0-100.0); MEAN CORPUSCULAR HEMOGLOBIN 28 pg (27.0-31.0); MEAN CORPUSCULAR HGB CONC 32 g/dl (33.0-37.0); MEAN PLATELET VOLUME 9.1 fl (7.4-10.4); MONO # 0.6 (0.1-0.6); MONO % 8.1 % (1.7-9.3); PLATELET COUNT 244 K/mm3 (130-400); RED BLOOD COUNT 4.66 M/mm3 (4.10-5.30); REDCELL DISTRIBUTION WIDTH-CV 17.7 % (11.5-14.5)
[2018-02-05 18:11] LABS: INR 0.9 (0.8-3.0); PROTHROMBIN TIME 10.8 SECONDS (9.7-12.8)
[2018-02-05 18:28] LABS: ALANINE AMINOTRANSFERASE 29 U/L (9-52); ALBUMIN 3.7 gm/dL (3.5-5.0); ALCOHOL(ethanol),MEDICAL 279 mg/dL; ALKALINE PHOSPHATASE 82 U/L (50-136); ANION GAP 17 mmol/L (7-16); AST,SGOT 29 U/L (15-37); BILIRUBIN,TOTAL 0.3 mg/dL (0.0-1.0); BLOOD UREA NITROGEN 10 mg/dL (7-17); CALCIUM 8.4 mg/dL (8.4-10.2); CARBON DIOXIDE 20 mmol/L (22-30); CHLORIDE 110 mmol/L (98-107); CREATININE, serum 0.87 mg/dL (0.52-1.25); GLUCOSE 85 mg/dL (74-106); LIPASE 217 U/L (23-300); MAGNESIUM 1.7 mg/dL (1.6-2.3); POTASSIUM 3.6 mmol/L (3.4-5.0); SODIUM 148 mmol/L (137-145); TOTAL PROTEIN 7.3 gm/dL (6.4-8.2)
[2018-02-05 18:39] LABS: TROPONIN-I < 0.012 ng/mL (0.000-0.034)
[2018-02-05 21:05] LABS: ALBUMIN 3.7 gm/dL (3.5-5.0); PHOSPHOROUS 2.9 mg/dL (2.5-4.5)
[2018-02-06] VITALS (824 sets, daily range): BP systolic 102–133; BP diastolic 63–95; PULSE 57–93; TEMP 97.1–98.3; O2SAT 32–100
[2018-02-06 01:07] LABS: COLLECTION METHOD CLEAN CATCH
[2018-02-06 01:32] LABS: MUCOUS Present /lpf; PH 6 (5-8); SQUAMOUS EPITHELIAL 0-2 /hpf; URINE APPEARANCE Hazy; URINE BACTERIA Rare /hpf; URINE BILIRUBIN Negative (NEGATIVE); URINE BLOOD Negative (NEGATIVE); URINE COLOR Yellow; URINE GLUCOSE Negative (NEGATIVE); URINE KETONE Negative (NEGATIVE); URINE LEUKOCYTE ESTERASE Negative (NEGATIVE); URINE NITRATE Positive (NEGATIVE); URINE PROTEIN(semi-quant) Negative (NEGATIVE); URINE RBC 0-2 /hpf; URINE UROBILINOGEN Negative (NEGATIVE)
[2018-02-06 01:33] LABS: HEMATOCRIT 38.3 % (37.0-47.0); HEMOGLOBIN 12.1 g/dl (12.5-16.0)
[2018-02-06 05:50] LABS: BASO # 0.1 (0.0-0.2); BASO % 1.2 % (0.0-2.0); EOS # 0.2 (0.0-0.7); EOS % 3.3 % (0-4.0); GRAN # 2.3 (1.4-6.5); GRAN % 43.6 % (42.2-75.2); LYMPH # 2.3 (1.2-3.4); LYMPH % 43.4 % (20.0-51.0); MEAN CELL VOLUME 88 fl (80.0-100.0); MEAN CORPUSCULAR HGB CONC 31 g/dl (33.0-37.0); MEAN PLATELET VOLUME 9.2 fl (7.4-10.4); MONO # 0.4 (0.1-0.6); MONO % 8.3 % (1.7-9.3); PLATELET COUNT 221 K/mm3 (130-400); RED BLOOD COUNT 4.09 M/mm3 (4.10-5.30); REDCELL DISTRIBUTION WIDTH-CV 17.7 % (11.5-14.5)
[2018-02-06 06:01] LABS: CALCIUM 7.6 mg/dL (8.4-10.2); CREATININE, serum 0.79 mg/dL (0.52-1.25); MAGNESIUM 1.7 mg/dL (1.6-2.3); POTASSIUM 3.9 mmol/L (3.4-5.0)
[2018-02-06 06:04] LABS: HEMATOCRIT 35.8 % (37.0-47.0); HEMOGLOBIN 11.1 g/dl (12.5-16.0); MEAN CORPUSCULAR HEMOGLOBIN 27 pg (27.0-31.0)
[2018-02-06 09:36] LABS: HEMATOCRIT 35.5 % (37.0-47.0); HEMOGLOBIN 11.1 g/dl (12.5-16.0)
[2018-02-06 20:46] LABS: HEMATOCRIT 38.4 % (37.0-47.0)
[2018-02-07] VITALS (11 sets, daily range): BP systolic 111–151; BP diastolic 62–95; PULSE 61–89; TEMP 97.9–99.8
[2018-02-07 07:11] LABS: BASO # 0.1 (0.0-0.2); BASO % 1.2 % (0.0-2.0); EOS # 0.1 (0.0-0.7); EOS % 2.4 % (0-4.0); GRAN # 2.1 (1.4-6.5); GRAN % 42.8 % (42.2-75.2); HEMATOCRIT 38.7 % (37.0-47.0); HEMOGLOBIN 12.1 g/dl (12.5-16.0); LYMPH # 2.1 (1.2-3.4); LYMPH % 41.8 % (20.0-51.0); MEAN CELL VOLUME 89 fl (80.0-100.0); MEAN CORPUSCULAR HEMOGLOBIN 28 pg (27.0-31.0); MEAN CORPUSCULAR HGB CONC 31 g/dl (33.0-37.0); MEAN PLATELET VOLUME 11.1 fl (7.4-10.4); MONO # 0.6 (0.1-0.6); MONO % 11.2 % (1.7-9.3); PLATELET COUNT 186 K/mm3 (130-400); RED BLOOD COUNT 4.36 M/mm3 (4.10-5.30); REDCELL DISTRIBUTION WIDTH-CV 17.2 % (11.5-14.5)
[2018-02-08] VITALS (7 sets, daily range): BP systolic 131–164; BP diastolic 78–101; PULSE 73–89; TEMP 98.3–98.9
[2018-02-08] MEDS ORDERED: FOLIC ACID 11 MG/TA1 PO (07:28)
[2018-02-08] MEDS ORDERED: CARAFATE S1 GM/10 ML PO (07:28)
[2018-02-08] MEDS ORDERED: THIAMINE 1100 MG/TAB PO (07:28)
[2018-02-08] MEDS ORDERED: PROTONIX 40MG T40 MG PO ×2 (07:28→09:34)
[2018-02-08] MEDS ORDERED: DUO-KAPS1 CAP PO (07:28)
[2018-02-08] MEDS ORDERED: SEROQUEL50 MG PO (08:39)
== END 2018-02-08 13:30 | disposition home or self-care (01) | DRG 378 ==
LOC: COL.ER 16:52 → ICU 20:25 → MEDICAL 20:25
PROVIDERS: Emergency Medicine; Internal Medicine; Internal Medicine Gastroenterology; Nurse Practitioner Family
PROC: 0DB68ZX Excision of Stomach, Via Natural or Artificial Opening Endoscopic, Diagnostic (ICD-10-PCS; 2018-02-06)
PROC: 0D738ZZ Dilation of Lower Esophagus, Via Natural or Artificial Opening Endoscopic (ICD-10-PCS; principal; 2018-02-06 12:00)
DX: K29.21 Alcoholic gastritis with bleeding (principal); E87.2 Acidosis; F10.24 Alcohol dependence with alcohol-induced mood disorder; E87.0 Hyperosmolality and hypernatremia; K22.2 Esophageal obstruction; K44.9 Diaphragmatic hernia without obstruction or gangrene; F10.229 Alcohol dependence with intoxication, unspecified; F43.12 Post-traumatic stress disorder, chronic; Z85.41 Personal history of malignant neoplasm of cervix uteri; F60.3 Borderline personality disorder; Y90.8 Blood alcohol level of 240 mg/100 ml or more
CPT/HCPCS: 99223-AI; 99233-AI; 99239; C1726; C9113; J1170; J2250; J2405; J2704; J3010; J3475; J3480; J7030

== ENCOUNTER 2018-02-09 18:48 | Emergency (ER) | payer SELFPAY ==
[~2018-02-09] VITALS: Ht 170.2 cm; Wt 76.8 kg
[~2018-02-09 18:48] MED LIST changes: +CARAFATE S1 GM/10 ML PO; +DUO-KAPS1 CAP PO; +FOLIC ACID 11 MG/TA1 PO; +PROTONIX 40MG T40 MG PO; +SEROQUEL50 MG PO; +THIAMINE 1100 MG/TAB PO
[2018-02-09 18:53] VITALS: BP 104/61; PULSE 108; TEMP 98.7
== END 2018-02-09 19:11 | disposition left against medical advice (07) ==
LOC: COL.ER 18:48
DX: R10.13 Epigastric pain (principal); Z53.21 Procedure and treatment not carried out due to patient leaving prior to being seen by health care provider; K92.0 Hematemesis

== ENCOUNTER 2018-02-10 00:02 | Emergency (ER) | payer SELFPAY ==
[~2018-02-10] VITALS: Ht 172.7 cm; Wt 76.4 kg
[2018-02-10 00:07] VITALS: TEMP 98.5
[2018-02-10 00:53] LABS: BASO # 0.1 (0.0-0.2); EOS # 0.1 (0.0-0.7); EOS % 1.5 % (0-4.0); GRAN # 2.4 (1.4-6.5); GRAN % 40.8 % (42.2-75.2); HEMATOCRIT 40.2 % (37.0-47.0); HEMOGLOBIN 12.9 g/dl (12.5-16.0); LYMPH # 2.8 (1.2-3.4); LYMPH % 47.7 % (20.0-51.0); MEAN CELL VOLUME 85 fl (80.0-100.0); MEAN CORPUSCULAR HEMOGLOBIN 27 pg (27.0-31.0); MEAN CORPUSCULAR HGB CONC 32 g/dl (33.0-37.0); MEAN PLATELET VOLUME 9.5 fl (7.4-10.4); MONO # 0.5 (0.1-0.6); MONO % 8.1 % (1.7-9.3); RED BLOOD COUNT 4.72 M/mm3 (4.10-5.30); REDCELL DISTRIBUTION WIDTH-CV 17.3 % (11.5-14.5)
[2018-02-10 00:54] LABS: ALANINE AMINOTRANSFERASE 23 U/L (9-52); ALBUMIN 3.6 gm/dL (3.5-5.0); ALKALINE PHOSPHATASE 79 U/L (50-136); ANION GAP 14 mmol/L (7-16); AST,SGOT 25 U/L (15-37); BILIRUBIN,TOTAL 0.3 mg/dL (0.0-1.0); BLOOD UREA NITROGEN 7 mg/dL (7-17); CALCIUM 8.5 mg/dL (8.4-10.2); CARBON DIOXIDE 26 mmol/L (22-30); CHLORIDE 107 mmol/L (98-107); CREATININE, serum 0.75 mg/dL (0.52-1.25); GLUCOSE 95 mg/dL (74-106); POTASSIUM 3.7 mmol/L (3.4-5.0); SODIUM 147 mmol/L (137-145); TOTAL PROTEIN 7.1 gm/dL (6.4-8.2)
[2018-02-10 00:55] LABS: ACETAMINOPHEN < 10 ug/mL (10-30); SALICYLATE < 1.0 mg/dL
[2018-02-10 00:59] LABS: PLATELET COUNT 313 K/mm3 (130-400)
[2018-02-10 01:03] LABS: ALCOHOL(ethanol),MEDICAL 321 mg/dL
[2018-02-10 01:37] LABS: COLLECTION METHOD CLEAN CATCH
[2018-02-10 01:47] LABS: MUCOUS Present /lpf; PH 7 (5-8); URINE APPEARANCE Hazy; URINE BACTERIA Rare /hpf; URINE BILIRUBIN Negative (NEGATIVE); URINE BLOOD Negative (NEGATIVE); URINE COLOR Yellow; URINE GLUCOSE Negative (NEGATIVE); URINE KETONE Negative (NEGATIVE); URINE LEUKOCYTE ESTERASE Negative (NEGATIVE); URINE NITRATE Positive (NEGATIVE); URINE PROTEIN(semi-quant) Negative (NEGATIVE); URINE RBC 0-2 /hpf; URINE UROBILINOGEN Negative (NEGATIVE)
[2018-02-10 01:52] LABS: TRICYCLIC ANTIDEPRESS URINE NEGATIVE
[2018-02-10 08:19] VITALS: BP 112/70; PULSE 75
== END 2018-02-10 11:40 | disposition home or self-care (01) ==
LOC: COL.ER 00:02
PROVIDERS: Emergency Medicine
DX: K29.20 Alcoholic gastritis without bleeding (principal); F10.10 Alcohol abuse, uncomplicated; F32.9 Major depressive disorder, single episode, unspecified; R45.851 Suicidal ideations; R10.13 Epigastric pain; Y90.8 Blood alcohol level of 240 mg/100 ml or more
CPT/HCPCS: J2550

== ENCOUNTER 2018-02-15 17:19 | Emergency (ER) | payer SELFPAY ==
[~2018-02-15] VITALS: Ht 170.2 cm; Wt 81.8 kg
[2018-02-15 17:54] LABS: COLLECTION METHOD CLEAN CATCH
[2018-02-15 18:02] LABS: MUCOUS Present /lpf; PH 6 (5-8); SQUAMOUS EPITHELIAL 0-2 /hpf; URINE APPEARANCE Hazy; URINE BACTERIA Rare /hpf; URINE BILIRUBIN Negative (NEGATIVE); URINE BLOOD Negative (NEGATIVE); URINE COLOR Straw; URINE GLUCOSE Negative (NEGATIVE); URINE KETONE Negative (NEGATIVE); URINE LEUKOCYTE ESTERASE Negative (NEGATIVE); URINE NITRATE Positive (NEGATIVE); URINE PROTEIN(semi-quant) Negative (NEGATIVE); URINE RBC 0-2 /hpf; URINE UROBILINOGEN Negative (NEGATIVE)
[2018-02-15 18:14] LABS: TRICYCLIC ANTIDEPRESS URINE NEGATIVE
[2018-02-15 18:24] LABS: BASO % 0.8 % (0.0-2.0); EOS # 0.1 (0.0-0.7); EOS % 2.3 % (0-4.0); GRAN # 2.3 (1.4-6.5); GRAN % 46.9 % (42.2-75.2); HEMATOCRIT 42.5 % (37.0-47.0); HEMOGLOBIN 13.5 g/dl (12.5-16.0); LYMPH # 2.1 (1.2-3.4); LYMPH % 42.6 % (20.0-51.0); MEAN CELL VOLUME 84 fl (80.0-100.0); MEAN CORPUSCULAR HEMOGLOBIN 27 pg (27.0-31.0); MEAN CORPUSCULAR HGB CONC 32 g/dl (33.0-37.0); MONO # 0.4 (0.1-0.6); MONO % 7.2 % (1.7-9.3); PLATELET COUNT 259 K/mm3 (130-400); RED BLOOD COUNT 5.08 M/mm3 (4.10-5.30); REDCELL DISTRIBUTION WIDTH-CV 17.8 % (11.5-14.5)
[2018-02-15 18:40] LABS: ACETAMINOPHEN < 10 ug/mL (10-30); ALANINE AMINOTRANSFERASE 26 U/L (9-52); ALBUMIN 4.1 gm/dL (3.5-5.0); ALKALINE PHOSPHATASE 89 U/L (50-136); ANION GAP 18 mmol/L (7-16); AST,SGOT 45 U/L (15-37); BILIRUBIN,TOTAL 0.3 mg/dL (0.0-1.0); BLOOD UREA NITROGEN 7 mg/dL (7-17); CALCIUM 8.6 mg/dL (8.4-10.2); CARBON DIOXIDE 20 mmol/L (22-30); CHLORIDE 109 mmol/L (98-107); CREATININE, serum 0.69 mg/dL (0.52-1.25); GLUCOSE 84 mg/dL (74-106); POTASSIUM 3.7 mmol/L (3.4-5.0); SALICYLATE < 1.0 mg/dL; SODIUM 147 mmol/L (137-145); TOTAL PROTEIN 8.1 gm/dL (6.4-8.2)
[2018-02-15 18:47] LABS: ALCOHOL(ethanol),MEDICAL 334 mg/dL
[2018-02-16] VITALS: TEMP 97.7
[2018-02-16 04:00] VITALS: BP 132/93; PULSE 96
== END 2018-02-16 04:00 | disposition home or self-care (01) ==
LOC: COL.ER 17:19
PROVIDERS: Family Medicine
DX: F32.9 Major depressive disorder, single episode, unspecified (principal); F10.20 Alcohol dependence, uncomplicated; Y90.8 Blood alcohol level of 240 mg/100 ml or more
CPT/HCPCS: J2060; J7030

== ENCOUNTER 2018-02-20 15:47 | Emergency (ER) | payer SELFPAY ==
[~2018-02-20] VITALS: Ht 170.2 cm; Wt 68.2 kg
[2018-02-20 16:21] LABS: COLLECTION METHOD CLEAN CATCH
[2018-02-20 16:29] LABS: MUCOUS Present /lpf; PH 6 (5-8); SQUAMOUS EPITHELIAL 0-2 /hpf; URINE APPEARANCE Hazy; URINE BACTERIA Rare /hpf; URINE BILIRUBIN Negative (NEGATIVE); URINE BLOOD Negative (NEGATIVE); URINE COLOR Yellow; URINE GLUCOSE Negative (NEGATIVE); URINE KETONE Negative (NEGATIVE); URINE LEUKOCYTE ESTERASE Negative (NEGATIVE); URINE NITRATE Positive (NEGATIVE); URINE PROTEIN(semi-quant) Negative (NEGATIVE); URINE RBC 0-2 /hpf; URINE UROBILINOGEN Negative (NEGATIVE)
[2018-02-20 16:45] LABS: TRICYCLIC ANTIDEPRESS URINE NEGATIVE
[2018-02-20 16:54] LABS: BASO # 0.1 (0.0-0.2); EOS # 0.1 (0.0-0.7); EOS % 0.7 % (0-4.0); GRAN # 3.9 (1.4-6.5); GRAN % 54.3 % (42.2-75.2); HEMATOCRIT 44.5 % (37.0-47.0); HEMOGLOBIN 14.5 g/dl (12.5-16.0); LYMPH # 2.7 (1.2-3.4); LYMPH % 38.4 % (20.0-51.0); MEAN CELL VOLUME 83 fl (80.0-100.0); MEAN CORPUSCULAR HEMOGLOBIN 27 pg (27.0-31.0); MEAN CORPUSCULAR HGB CONC 33 g/dl (33.0-37.0); MEAN PLATELET VOLUME 8.9 fl (7.4-10.4); MONO # 0.4 (0.1-0.6); MONO % 5.3 % (1.7-9.3); PLATELET COUNT 257 K/mm3 (130-400); RED BLOOD COUNT 5.39 M/mm3 (4.10-5.30); REDCELL DISTRIBUTION WIDTH-CV 18.1 % (11.5-14.5)
[2018-02-20 17:00] LABS: ANION GAP 20 mmol/L (7-16); BLOOD UREA NITROGEN 7 mg/dL (7-17); CARBON DIOXIDE 19 mmol/L (22-30); CHLORIDE 109 mmol/L (98-107); CREATININE, serum 0.78 mg/dL (0.52-1.25); GLUCOSE 95 mg/dL (74-106); POTASSIUM 3.4 mmol/L (3.4-5.0); SODIUM 148 mmol/L (137-145)
[2018-02-20 17:02] LABS: ACETAMINOPHEN < 10 ug/mL (10-30); SALICYLATE < 1.0 mg/dL
[2018-02-20 17:08] LABS: ALCOHOL(ethanol),MEDICAL 396 mg/dL
[2018-02-21 05:29] VITALS: TEMP 98.3
[2018-02-21 15:03] VITALS: BP 148/93; PULSE 114
== END 2018-02-21 15:07 ==
LOC: COL.ER 15:47
PROVIDERS: Emergency Medicine
DX: F10.129 Alcohol abuse with intoxication, unspecified (principal); F32.9 Major depressive disorder, single episode, unspecified; Z85.41 Personal history of malignant neoplasm of cervix uteri; Z90.89 Acquired absence of other organs; Z90.710 Acquired absence of both cervix and uterus; Z90.721 Acquired absence of ovaries, unilateral; Y90.8 Blood alcohol level of 240 mg/100 ml or more

== ENCOUNTER 2018-03-08 22:51 | Emergency (ER) | payer SELFPAY ==
[2018-03-08 23:38] LABS: BASO # 0.1 (0.0-0.2); BASO % 0.9 % (0.0-2.0); EOS # 0.1 (0.0-0.7); EOS % 1.8 % (0-4.0); GRAN # 3.7 (1.4-6.5); GRAN % 48.6 % (42.2-75.2); HEMOGLOBIN 11.3 g/dl (12.5-16.0); LYMPH # 3.2 (1.2-3.4); LYMPH % 41.8 % (20.0-51.0); MEAN CELL VOLUME 84 fl (80.0-100.0); MEAN CORPUSCULAR HEMOGLOBIN 27 pg (27.0-31.0); MEAN CORPUSCULAR HGB CONC 32 g/dl (33.0-37.0); MEAN PLATELET VOLUME 8.8 fl (7.4-10.4); MONO # 0.5 (0.1-0.6); MONO % 6.8 % (1.7-9.3); PLATELET COUNT 252 K/mm3 (130-400); RED BLOOD COUNT 4.19 M/mm3 (4.10-5.30); REDCELL DISTRIBUTION WIDTH-CV 17.9 % (11.5-14.5)
[2018-03-08 23:40] LABS: HEMATOCRIT 35.2 % (37.0-47.0)
[2018-03-08 23:50] LABS: ALANINE AMINOTRANSFERASE 35 U/L (9-52); ALBUMIN 3.5 gm/dL (3.5-5.0); ALKALINE PHOSPHATASE 83 U/L (50-136); ANION GAP 15 mmol/L (7-16); AST,SGOT 43 U/L (15-37); BILIRUBIN,TOTAL 0.2 mg/dL (0.0-1.0); BLOOD UREA NITROGEN 11 mg/dL (7-17); CALCIUM 8.5 mg/dL (8.4-10.2); CARBON DIOXIDE 23 mmol/L (22-30); CHLORIDE 110 mmol/L (98-107); CREATININE, serum 0.89 mg/dL (0.52-1.25); GLUCOSE 89 mg/dL (74-106); POTASSIUM 3.5 mmol/L (3.4-5.0); SODIUM 148 mmol/L (137-145); TOTAL PROTEIN 6.8 gm/dL (6.4-8.2)
[2018-03-08 23:51] LABS: ACETAMINOPHEN < 10 ug/mL (10-30); SALICYLATE < 1.0 mg/dL
[2018-03-08 23:59] LABS: ALCOHOL(ethanol),MEDICAL 363 mg/dL
[2018-03-09 06:26] LABS: COLLECTION METHOD CLEAN CATCH
[2018-03-09 06:36] LABS: PH 6 (5-8); URINE APPEARANCE Clear; URINE BACTERIA Rare /hpf; URINE BILIRUBIN Negative (NEGATIVE); URINE BLOOD Negative (NEGATIVE); URINE COLOR Yellow; URINE GLUCOSE Negative (NEGATIVE); URINE KETONE Negative (NEGATIVE); URINE LEUKOCYTE ESTERASE Trace (NEGATIVE); URINE NITRATE Negative (NEGATIVE); URINE PROTEIN(semi-quant) Negative (NEGATIVE); URINE RBC 0-2 /hpf; URINE UROBILINOGEN Negative (NEGATIVE)
[2018-03-09 06:54] LABS: TRICYCLIC ANTIDEPRESS URINE NEGATIVE
[2018-03-12 14:43] VITALS: TEMP 98.9
[2018-03-13 08:06] VITALS: BP 124/76; PULSE 104
== END 2018-03-13 09:43 ==
LOC: COL.ER 22:51
PROVIDERS: Emergency Medicine
DX: T43.222A Poisoning by selective serotonin reuptake inhibitors, intentional self-harm, initial encounter (principal); F10.129 Alcohol abuse with intoxication, unspecified; F32.9 Major depressive disorder, single episode, unspecified; Z90.89 Acquired absence of other organs; Z90.710 Acquired absence of both cervix and uterus; Y90.5 Blood alcohol level of 100-119 mg/100 ml
CPT/HCPCS: J7030

== ENCOUNTER 2018-09-10 11:11 | Emergency (ER) | payer SELFPAY ==
[~2018-09-10] VITALS: Ht 170.2 cm; Wt 81.8 kg
[2018-09-10 11:27] VITALS: BP 120/71; TEMP 97.1
[2018-09-10] MEDS ORDERED: MEDROL 4MG DOSPA4 MG PO (13:15)
[2018-09-10] MEDS ORDERED: LIDODERM 5% PATC1 EA TP (13:15)
[2018-09-10] MEDS ORDERED: FLEXERIL 1010 MG/TAB PO (13:15)
[2018-09-10] MEDS ORDERED: BACTROBAN22 TOP (13:16)
[2018-09-10 13:30] VITALS: PULSE 76
== END 2018-09-10 13:30 | disposition home or self-care (01) ==
LOC: COL.ER 11:11
DX: S39.012A Strain of muscle, fascia and tendon of lower back, initial encounter (principal); M54.42 Lumbago with sciatica, left side; L25.9 Unspecified contact dermatitis, unspecified cause; Z90.49 Acquired absence of other specified parts of digestive tract; Z90.89 Acquired absence of other organs; Z90.710 Acquired absence of both cervix and uterus; Z98.51 Tubal ligation status; Z85.41 Personal history of malignant neoplasm of cervix uteri; Z85.43 Personal history of malignant neoplasm of ovary; X50.0XXA Overexertion from strenuous movement or load, initial encounter; Y92.59 Other trade areas as the place of occurrence of the external cause

== ENCOUNTER 2018-10-14 13:44 | Emergency (ER) | payer SELFPAY ==
[~2018-10-14] VITALS: Ht 170.2 cm; Wt 81.8 kg
[~2018-10-14 13:44] MED LIST changes: +BACTROBAN22 TOP; +LIDODERM 5% PATC1 EA TP; +MEDROL 4MG DOSPA4 MG PO
[2018-10-14 14:58] LABS: ALANINE AMINOTRANSFERASE 24 U/L (9-52); ALCOHOL(ethanol),MEDICAL 298 mg/dL; ALKALINE PHOSPHATASE 86 U/L (50-136); ANION GAP 9 mmol/L (7-16); AST,SGOT 40 U/L (15-37); BILIRUBIN,TOTAL 0.3 mg/dL (0.0-1.0); BLOOD UREA NITROGEN 5 mg/dL (7-17); CALCIUM 8.6 mg/dL (8.4-10.2); CARBON DIOXIDE 24 mmol/L (22-30); CHLORIDE 113 mmol/L (98-107); CREATININE, serum 0.76 mg/dL (0.52-1.25); GLUCOSE 98 mg/dL (74-106); LIPASE 158 U/L (23-300); MAGNESIUM 1.7 mg/dL (1.6-2.3); POTASSIUM 3.5 mmol/L (3.4-5.0); SODIUM 145 mmol/L (137-145); TOTAL PROTEIN 7.3 gm/dL (6.4-8.2)
[2018-10-14] MEDS ORDERED: ZOLOFT 100MG100 MG PO (14:58)
[2018-10-14 15:03] LABS: ACETAMINOPHEN < 10 ug/mL (10-30); SALICYLATE < 1.0 mg/dL
[2018-10-14 15:37] LABS: BASO # 0.1 (0.0-0.2); BASO % 1.4 % (0.0-2.0); EOS # 0.1 (0.0-0.7); EOS % 3.7 % (0-4.0); GRAN # 1.8 (1.4-6.5); GRAN % 51.3 % (42.2-75.2); HEMATOCRIT 46.4 % (37.0-47.0); HEMOGLOBIN 15.4 g/dl (12.5-16.0); LYMPH # 1.2 (1.2-3.4); LYMPH % 35.3 % (20.0-51.0); MEAN CELL VOLUME 84 fl (80.0-100.0); MEAN CORPUSCULAR HEMOGLOBIN 28 pg (27.0-31.0); MEAN CORPUSCULAR HGB CONC 33 g/dl (33.0-37.0); MEAN PLATELET VOLUME 10.2 fl (7.4-10.4); MONO # 0.3 (0.1-0.6); MONO % 7.7 % (1.7-9.3); PLATELET COUNT 123 K/mm3 (130-400); RED BLOOD COUNT 5.53 M/mm3 (4.10-5.30)
[2018-10-14 18:22] LABS: COLLECTION METHOD CLEAN CATCH
[2018-10-14 18:30] LABS: MUCOUS Present /lpf; PH 5 (5-8); URINE APPEARANCE Cloudy; URINE BACTERIA Rare /hpf; URINE BILIRUBIN Negative (NEGATIVE); URINE BLOOD Negative (NEGATIVE); URINE COLOR Amber; URINE GLUCOSE Negative (NEGATIVE); URINE KETONE Negative (NEGATIVE); URINE LEUKOCYTE ESTERASE Trace (NEGATIVE); URINE NITRATE Positive (NEGATIVE); URINE PROTEIN(semi-quant) 1+ (NEGATIVE); URINE RBC 0-2 /hpf; URINE UROBILINOGEN Negative (NEGATIVE)
[2018-10-14 18:37] LABS: TRICYCLIC ANTIDEPRESS URINE NEGATIVE
[2018-10-14 23:06] VITALS: TEMP 98.8
[2018-10-15 00:47] VITALS: BP 125/81; PULSE 103
[2018-10-17] MEDS ORDERED: MACROBID 1100 MG/CAP PO (16:28)
== END 2018-10-15 01:17 | disposition home or self-care (01) ==
LOC: COL.ER 13:44
PROVIDERS: Emergency Medicine
DX: R45.851 Suicidal ideations (principal); F10.129 Alcohol abuse with intoxication, unspecified; F32.9 Major depressive disorder, single episode, unspecified; Y90.8 Blood alcohol level of 240 mg/100 ml or more
CPT/HCPCS: J2060; J2405; J3411; J3475; J7030

== ENCOUNTER 2018-10-25 20:48 | Emergency (ER) | payer SELFPAY ==
[2018-10-25 20:55] VITALS: TEMP 98.6
[2018-10-25 22:03] LABS: COLLECTION METHOD CLEAN CATCH
[2018-10-25 22:16] LABS: TRICYCLIC ANTIDEPRESS URINE NEGATIVE
[2018-10-25 22:39] LABS: MUCOUS Present /lpf; PH 5 (5-8); URINE APPEARANCE Cloudy; URINE BACTERIA Rare /hpf; URINE BILIRUBIN Negative (NEGATIVE); URINE BLOOD 1+ (NEGATIVE); URINE COLOR Yellow; URINE GLUCOSE Negative (NEGATIVE); URINE KETONE Negative (NEGATIVE); URINE LEUKOCYTE ESTERASE Trace (NEGATIVE); URINE NITRATE Positive (NEGATIVE); URINE PROTEIN(semi-quant) Negative (NEGATIVE); URINE RBC 0-2 /hpf; URINE UROBILINOGEN Negative (NEGATIVE)
[2018-10-25 22:39] LABS: BASO # 0.1 (0.0-0.2); BASO % 1.9 % (0.0-2.0); EOS # 0.1 (0.0-0.7); EOS % 1.2 % (0-4.0); GRAN # 2.2 (1.4-6.5); GRAN % 52.5 % (42.2-75.2); HEMATOCRIT 44.4 % (37.0-47.0); HEMOGLOBIN 14.5 g/dl (12.5-16.0); LYMPH # 1.6 (1.2-3.4); LYMPH % 36.6 % (20.0-51.0); MEAN CELL VOLUME 85 fl (80.0-100.0); MEAN CORPUSCULAR HEMOGLOBIN 28 pg (27.0-31.0); MEAN CORPUSCULAR HGB CONC 33 g/dl (33.0-37.0); MEAN PLATELET VOLUME 8.5 fl (7.4-10.4); MONO # 0.3 (0.1-0.6); MONO % 7.8 % (1.7-9.3); PLATELET COUNT 158 K/mm3 (130-400); REDCELL DISTRIBUTION WIDTH-CV 17.7 % (11.5-14.5)
[2018-10-25 22:50] LABS: ALANINE AMINOTRANSFERASE 32 U/L (9-52); ALBUMIN 4.1 gm/dL (3.5-5.0); ALKALINE PHOSPHATASE 110 U/L (50-136); ANION GAP 8 mmol/L (7-16); AST,SGOT 53 U/L (15-37); BILIRUBIN,TOTAL 0.5 mg/dL (0.0-1.0); BLOOD UREA NITROGEN 5 mg/dL (7-17); CALCIUM 8.3 mg/dL (8.4-10.2); CARBON DIOXIDE 27 mmol/L (22-30); CHLORIDE 111 mmol/L (98-107); CREATININE, serum 0.86 mg/dL (0.52-1.25); GLUCOSE 88 mg/dL (74-106); POTASSIUM 3.8 mmol/L (3.4-5.0); SODIUM 146 mmol/L (137-145); TOTAL PROTEIN 7.4 gm/dL (6.4-8.2)
[2018-10-25 22:51] LABS: ACETAMINOPHEN < 10 ug/mL (10-30); SALICYLATE < 1.0 mg/dL
[2018-10-25 22:58] LABS: ALCOHOL(ethanol),MEDICAL 354 mg/dL
[2018-10-26 13:13] VITALS: BP 152/110; PULSE 117
[2018-10-28] MEDS ORDERED: CIPRO 250MG TA250 MG PO (01:06)
== END 2018-10-26 13:40 | disposition home or self-care (01) ==
LOC: COL.ER 20:48
PROVIDERS: Emergency Medicine
DX: R45.851 Suicidal ideations (principal); F10.129 Alcohol abuse with intoxication, unspecified; T74.21XA Adult sexual abuse, confirmed, initial encounter; Y90.8 Blood alcohol level of 240 mg/100 ml or more; Y07.01 Husband, perpetrator of maltreatment and neglect